=== PATIENT | female | born 1990 | race Caucasian/White ===

== ENCOUNTER → 2018-09-20 | Outpatient (CLI) | payer OTHER ==
[~2018-09-20] MED LIST: AUGMENTIN 875875 MG PO; ZOFRAN ODT4 MG SL; ZOLOFT50 MG PO
== END | disposition home or self-care (01) ==
LOC: US 17:00
DX: Z34.81 Encounter for supervision of other normal pregnancy, first trimester (principal); Z3A.08 8 weeks gestation of pregnancy

== ENCOUNTER → 2018-10-14 | Outpatient (CLI) | payer OTHER | END | disposition home or self-care (01) | LOC: LAB 04:16 | DX: Z34.90 Encounter for supervision of normal pregnancy, unspecified, unspecified trimester (principal) ==

== ENCOUNTER → 2018-10-27 | Outpatient (CLI) | payer OTHER | END | disposition home or self-care (01) | LOC: LAB 01:17 | DX: R73.09 Other abnormal glucose (principal) ==

== ENCOUNTER → 2019-02-16 | Outpatient (CLI) | payer OTHER ==
[~2019-02-16] MED LIST changes: +CEFADROXIL500 M1 PO; +PRENATAL FORMU1 EAC4 PO
[2019-02-16 12:02] LABS: BASO % 0.2 % (0.0-1.0); EOS # 0.2 10*3/uL (0.0-0.4); EOS % 1.1 % (1.0-4.0); HEMATOCRIT 35.9 % (37.0-47.0); HEMOGLOBIN 11.9 g/dl (12.0-16.0); LYMPH # 1.8 10*3/uL (1.3-4.4); LYMPH % 13.1 % (27.0-41.0); MEAN CELL VOLUME 80.3 fl (81.0-99.0); MEAN CORPUSCULAR HGB 26.6 pg (27.0-31.0); MEAN CORPUSCULAR HGB CONC 33.1 g/dl (33.0-37.0); MONO # 0.7 10*3/uL (0.1-1.0); MONO % 5.2 % (3.0-9.0); NEUT # 11.2 10*3/uL (2.3-7.9); NEUT % 79.6 % (47.0-73.0); PLATELET COUNT AUTOMATED 248 10*3/uL (130-400); RED BLOOD COUNT 4.47 10*6/uL (4.10-5.10); RED CELL DISTRI WIDTH 13.1 % (0-14.5)
== END | disposition home or self-care (01) ==
LOC: LAB 11:47
PROVIDERS: Nurse Practitioner Women's Health
DX: Z34.83 Encounter for supervision of other normal pregnancy, third trimester (principal); Z3A.29 29 weeks gestation of pregnancy

== ENCOUNTER 2019-02-17 22:49 | Emergency (ER) | payer OTHER ==
[~2019-02-17] VITALS: Ht 175.2 cm; Wt 124.7 kg
[~2019-02-17 22:49] MED LIST changes: -CEFADROXIL500 M1 PO; -PRENATAL FORMU1 EAC4 PO
[2019-02-17 22:52] VITALS: BP 125/83
[2019-02-17] MEDS ORDERED: PRENATAL FORMU1 EAC4 PO (23:41)
[2019-02-18] MEDS ORDERED: CEFADROXIL500 M1 PO (00:04)
== END 2019-02-18 00:37 | disposition home or self-care (01) ==
LOC: ED 22:49
DX: O9A.213 Injury, poisoning and certain other consequences of external causes complicating pregnancy, third trimester (principal); S91.102A Unspecified open wound of left great toe without damage to nail, initial encounter; Z3A.30 30 weeks gestation of pregnancy; Z88.2 Allergy status to sulfonamides; Z79.899 Other long term (current) drug therapy; Z90.49 Acquired absence of other specified parts of digestive tract; W01.0XXA Fall on same level from slipping, tripping and stumbling without subsequent striking against object, initial encounter; Y93.89 Activity, other specified; Y92.098 Other place in other non-institutional residence as the place of occurrence of the external cause; Y99.8 Other external cause status

== ENCOUNTER → 2019-02-21 | Outpatient (CLI) | payer OTHER ==
[~2019-02-21] MED LIST changes: +CEFADROXIL500 M1 PO; +PRENATAL FORMU1 EAC4 PO
== END | disposition home or self-care (01) ==
LOC: US 01:36
DX: Z34.83 Encounter for supervision of other normal pregnancy, third trimester (principal); Z3A.30 30 weeks gestation of pregnancy

== ENCOUNTER → 2019-02-25 | Outpatient (CLI) | payer OTHER | END | disposition home or self-care (01) | LOC: LAB 10:00 | DX: Z34.83 Encounter for supervision of other normal pregnancy, third trimester (principal); Z3A.29 29 weeks gestation of pregnancy ==

== ENCOUNTER → 2019-03-16 | Outpatient (CLI) | payer OTHER | END | disposition home or self-care (01) | LOC: US 00:47 | DX: Z34.83 Encounter for supervision of other normal pregnancy, third trimester (principal); Z3A.33 33 weeks gestation of pregnancy ==

== ENCOUNTER → 2019-04-03 | Outpatient (CLI) | payer OTHER | END | disposition home or self-care (01) | LOC: US 06:30 | DX: Z34.93 Encounter for supervision of normal pregnancy, unspecified, third trimester (principal); Z3A.36 36 weeks gestation of pregnancy ==

== ENCOUNTER 2023-06-20 17:40 | Emergency (ER) | payer SELFPAY ==
[~2023-06-20] VITALS: Ht 177.8 cm; Wt 158.8 kg
[2023-06-20 17:49] VITALS: BP 133/76
[2023-06-20] MEDS ORDERED: CLEOCIN HCL300 MG PO (18:07)
[2023-06-20] MEDS ORDERED: VIBRAMYCIN100 MG PO (18:07)
== END 2023-06-20 18:32 | disposition home or self-care (01) ==
LOC: ED 17:40
DX: S80.862A Insect bite (nonvenomous), left lower leg, initial encounter (principal); Z88.8 Allergy status to other drugs, medicaments and biological substances; Z88.2 Allergy status to sulfonamides; Z90.49 Acquired absence of other specified parts of digestive tract; Z90.89 Acquired absence of other organs; W57.XXXA Bitten or stung by nonvenomous insect and other nonvenomous arthropods, initial encounter; Y93.89 Activity, other specified; Y92.89 Other specified places as the place of occurrence of the external cause; Y99.8 Other external cause status